=== PATIENT | female | born 1985 | race Hispanic/Latino ===

== ENCOUNTER 2018-07-11 23:05 | Emergency (ER) | payer MEDICAID ==
[2018-07-12 05:41] VITALS: BP 116/72; PULSE 72
== END 2018-07-12 00:40 | disposition home or self-care (01) ==
LOC: H.EROB2 23:05
DX: O34.63 Maternal care for abnormality of vagina, third trimester (principal); N89.8 Other specified noninflammatory disorders of vagina; Z3A.35 35 weeks gestation of pregnancy

== ENCOUNTER 2018-08-15 03:55 | Inpatient (IN) | payer MEDICAID ==
[2018-08-15 05:08] VITALS: BMI 27.3
[2018-08-15] MEDS ORDERED: Lactated Ringer's 1,000 ML IV ONE (05:09)
[2018-08-15] MEDS ORDERED: Oxytocin 30 UNIT 30 UNITS/500 ML BAG IV ONE ×2 (05:11→10:51)
[2018-08-15] MEDS: Lactated Ringer's 1,000 ML IV SCH ×2 (05:15→14:50)
[2018-08-15] MEDS ORDERED: OXYTOCIN/0.9 % NS 20 UNIT/1,000 ML BAG IV SCH (05:15)
[2018-08-15 06:44] LABS: BASO % 0.3 % (0.0-2.0); EOS # 0.1 K/uL (0.0-0.7); EOS % 1.2 % (0.0-4.0); HEMOGLOBIN 10.8 g/dL (12.0-16.0); LYMPH # 1.8 K/uL (1.0-4.3); LYMPH % 17.6 % (20.0-40.0); MEAN CELL VOLUME 72.8 fl (81.0-99.0); MEAN CORPUSCULAR HEMOGLOBIN 23.7 pg (27.0-31.0); MEAN CORPUSCULAR HGB CONC 32.5 g/dL (33.0-37.0); MEAN PLATELET VOLUME 9.5 fl (7.2-11.7); MONO # 0.8 K/uL (0.0-0.8); NEUT # 7.3 K/uL (1.8-7.0); NEUT % 72.9 % (50.0-75.0); RBC 4.55 Mil/uL (3.80-5.20); RED CELL DISTRIBUTION WIDTH 13.8 % (11.5-14.5); WHITE BLOOD COUNT 10.1 K/uL (4.8-10.8)
[2018-08-15] MEDS ORDERED: Lidocaine 1% Inj (20ml) ONE (07:41)
--- NOTE | 2018-08-15 08:03 | OBADHP ---
Datetime: 08/15/2018 05:04 Admit Comment, IP Provider: 33 yo 38wk present to [facility] due to constant contraction started a t 21:00 08/14/18 every six mint. Pt also complain of blood discharge otherwise denies noticing water gush. denies complication during Allergy none PCP: Dr. Bean PMH: none PSH: none OBGYN: 1 nvd 2009, 1 1 miscarriage FH: denies disease Social Denies smoke ETOH, Drug use ( + marijuana use on screen test on wk preg) 5:00 Assessment and plan 33 yo 38wk present to [facility] due to contraction. Will be admitted to L_D for active labor PT is not acute distress FHS reactive U/S Vertix Cervix 6cm LR 1L at 999 LR 1L at 125 Anesthesia at case start labor protocol Discussed with Dr Uriel Stephen PGY1 Addendum by Dr. Trevino: I have evaluated the patient independently and I agree with the above Pelvic Type - PN: Adequate Extremities - PN: Normal Abdomen - PN: Normal Back - PN: Normal Breast - PN: Not Done Lungs - PN: Normal Heart - PN: Normal Thyroid - PN: Normal Neurologic - PN: Normal HEENT - PN: Normal General - PN: Normal Comments, ACOG Physical Exam: PT is not acute distress heart no extra heart sound lung clear abd nontender bs+ cervix 6cm IP Chief Complaint: Uterine contractions Genitourinary Exam: Normal DTRs - PN: Normal EGA AdmitDate IP: 38.0 IP Adm Impression: Term, intrauterine IP Admit Plan: Admit to unit; Initiate labor protocol Datetime: 08/15/2018 04:50 Presentation-Admit: Vertex FHR - Baseline A Provider: 145 Contraction Comments Provider: q 5 mins Gestation - Est Wks by US: 38.0 Vital Signs Provider: Reviewed; Within Normal Limits NICHD Variability Prov Fetus A: Moderate 6-25bpm Dilatation, Provider: 6 Effacement, Provider: 90 Station, Provider: -1 Datetime: 07/12/2018 00:36 NICHD Accel Fetus A IP Provider: [id number] FHR Category Provider Fetus A: Category I NICHD Decel Fetus A IP Provider: None
[2018-08-15 09:32] LABS: BARBITURATES, UR NEGATIVE (NEGATIVE); BENZODIAZEPINES, UR NEGATIVE (NEGATIVE)
[2018-08-15 09:33] LABS: OPIATES, UR NEGATIVE (NEGATIVE); PHENCYCLIDINE, UR NEGATIVE (NEGATIVE)
--- NOTE | 2018-08-15 17:45 | OBPN ---
Datetime: 08/15/2018 11:45 IP Progress Impression: Reassuring heart rate Datetime: 08/15/2018 11:35 IP Procedures: Sterile Vag Exam IP Progress Plan: Induction FHR - Baseline A Provider: 120s-130s IP Progress Note Comment: Discussed with patient that prior exam overestimated her dilation and that she is only 1-2cm. FHT category I. I discussed options with patient including discharge home and e xpectant management or augmentation due to prodromal labor. Pt states that she is too uncomfortable and is requesting augmentation. Plan to admit patient for augmentation. Discussed plan with patient and all patient questions answered. Vital Signs Provider: Reviewed; Within Normal Limits NICHD Accel Fetus A IP Provider: [id number] FHR Category Provider Fetus A: Category I NICHD Variability Prov Fetus A: Moderate 6-25bpm Dilatation, Provider: 1-2 Effacement, Provider: 50 Station, Provider: -3 NICHD Decel Fetus A IP Provider: None Datetime: 08/15/2018 04:50 Contraction Comments Provider: q 5 mins Gestation - Est Wks by US: 38.0 Presentation-Admit: Vertex
--- NOTE | 2018-08-15 17:53 | OBPN ---
Datetime: 08/15/2018 17:51 IP Procedures: Sterile Vag Exam IP Progress Plan: Continue present management; Augmentation Contraction Comments Provider: q3-5min FHR - Baseline A Provider: 120s-130s IP Progress Note Comment: Pt without complaints FHT category I Continue current management. Discussed plan with patient and all patient questions answered. Vital Signs Provider: Reviewed; Within Normal Limits NICHD Accel Fetus A IP Provider: [id number] FHR Category Provider Fetus A: Category I NICHD Variability Prov Fetus A: Moderate 6-25bpm Dilatation, Provider: 2 Effacement, Provider: 90 Station, Provider: -2 NICHD Decel Fetus A IP Provider: None
[2018-08-15] MEDS ORDERED: Fentanyl/Bupivacaine HCl 250 ML EPI ONE (19:15)
[2018-08-15] MEDS ORDERED: ePHEDrine 50 mg/ml Inj ONE (20:01)
--- NOTE | 2018-08-15 22:58 | OBPN ---
Datetime: 08/15/2018 21:56 IP Progress Impression: Normal progression of labor IP Procedures: Sterile Vag Exam IP Progress Plan: Continue present management Contraction Comments Provider: q4-5min FHR - Baseline A Provider: 140s-150s IP Progress Note Comment: Pt without complaints FHT category I Labor progressing well Continue current managment. Vital Signs Provider: Reviewed; Within Normal Limits NICHD Accel Fetus A IP Provider: [id number] FHR Category Provider Fetus A: Category I NICHD Variability Prov Fetus A: Moderate 6-25bpm Dilatation, Provider: 7-8 Effacement, Provider: 100 Station, Provider: 0 NICHD Decel Fetus A IP Provider: None
--- NOTE | 2018-08-15 23:50 | OBDS ---
MATERNAL INFORMATION Provider Comments: . Pt delivered viable infant male with Apgars 1/9 at 1 _ 5 minutes. MARIE position. Placenta deliver ed spont. Lac repaired, as above. Uterus firm and approp hemostatic following delivery. Pt tolerat ed delivery and repair well. No complications. EBL 300cc. LABOR SUMMARY EDC: 08/29/2018 00:00 LABOR INFORMATION Group B Beta Strep: Negative MEMBRANES Membranes Rupture Method: Spontaneous Rupture of Membranes: 08/15/2018 18:30 Amniotic Fluid Amount: Moderate Amniotic Fluid Odor: Normal VAGINAL DELIVERY Episiotomy: None Laceration Extension: Second Degree Laceration Type: Perineal Laceration Repair Note: Second degree midline perineal laceration. Area infiltrated with 1% lidocai ne. Lac repaired with 2.0 rapide without complication. Pt tolerated well.
[2018-08-15] MEDS ORDERED: Oxycodone/Acetaminophen 5/325 mg Tab PO PRN ×2 (23:55)
[2018-08-15] MEDS ORDERED: Benzocaine/Menthol SPRAY TOP PRN (23:55)
--- NOTE | 2018-08-16 00:52 | OBDS ---
DELIVERY PERSONNEL Delivery Doctor: Arvin Rucker MD Central Office Equipment Engineer: Emily Steinberg RN Anesthesiologist: Carlos Manuel Amaral MD MATERNAL INFORMATION Delivery Anesthesia: Local; Epidural Medications in Delivery: Pitocin Estimated Blood Loss (ml): 300 Placenta Cultured: No Maternal Complications: None Provider Comments: . Pt delivered viable male with Apgars 9/9 at 1 _ 5 minutes. MARIE position. Placenta deliver ed spont. Lac repaired, as above. Uterus firm and approp hemostatic following delivery. Pt tolerat ed delivery and repair well. No complications. EBL 300cc. Addendum: Apgars were 9/9 LABOR SUMMARY EDC: 08/29/2018 00:00 EDC: 08/14/2018 00:00 No. Babies in Womb: 1 Attempted: No Labor Anesthesia: Epidural LABOR INFORMATION Reason for Induction: Not Applicable Onset of Labor: 08/15/2018 21:45 Complete Dilatation: 08/15/2018 22:55 Oxytocin: Augmentation Group B Beta Strep: Negative Antibiotics # of Doses: 0 Antibiotics Time of Last Dose: N/A MEMBRANES Membranes Rupture Method: Spontaneous Membranes Rupture Method: Spontaneous Membranes Rupture Method: Spontaneous Membranes Rupture Method: Spontaneous Membranes Rupture Method: Spontaneous Rupture of Membranes: 08/15/2018 18:30 Rupture of Membranes: 08/15/2018 18:30 Rupture of Membranes: 08/15/2018 18:30 Length of Rupture (hrs): 4.67 Length of Rupture (hrs): 4.67 Length of Rupture (hrs): 4.67 Amniotic Fluid Color: Clear Amniotic Fluid Amount: Moderate Amniotic Fluid Amount: Moderate Amniotic Fluid Amount: Moderate Amniotic Fluid Odor: Normal Amniotic Fluid Odor: Normal Amniotic Fluid Odor: Normal STAGES OF LABOR Stage 1 hrs: 1 Stage 1 min: 10 Stage 2 hrs: 0 Stage 2 min: 15 Stage 3 hrs: 0 Stage 3 min: 8 Total Time in Labor hrs: 1 Total Time in Labor min: 33 VAGINAL DELIVERY Episiotomy: None Laceration Extension: Second Degree Laceration Type: Perineal Laceration Repair: Yes Laceration Repair Note: Second degree midline perineal laceration. Area infiltrated with 1% lidocai ne. Lac repaired with 2.0 rapide without complication. Pt tolerated well. Initial Vag Sponge Count: 5 Laps _ 10 4x4's Final Vag Sponge Count: 5 Laps _ 20 4x4's Initial Vag Sharps Count: 3 Final Vag Sharps Count: 3 Sponge Count Correct: Yes Sharps Count Correct: Yes Count Comment: All counts correct and acknowledged by Dr. Rucker BABY A INFORMATION Infant Delivery Date/Time: 08/15/2018 23:10 Method of Delivery: Vaginal Born in Route : No : N/A Forceps: N/A Vacuum Extraction: N/A Shoulder Dystocia : No SHOULDER DYSTOCIA BABY A Delivery Date/Time: 08/15/2018 23:10 PRESENTATION/POSITION BABY A Presentation: Cephalic Cephalic Presentation: Vertex Vertex Position: Left Occipital Anterior Breech Presentation: N/A PLACENTA INFORMATION BABY A Placenta Delivery Time : 08/15/2018 23:18 Placenta Method of Delivery: Spontaneous Placenta Status: Delivered SCORES BABY A Heart Rate 1 min: >100 bpm Resp Effort 1 min: Good Cry Reflex Irritability 1 min: Cough or Sneeze or Pulls Away Muscle Tone 1 min: Active Motion Color 1 min: Body Candor, Extremities Blue Resuscitation Effort 1 min: Tactile Stimulation SCORE 1 MIN: 9 Heart Rate 5 min: >100 bpm Resp Effort 5 min: Good Cry Reflex Irritability 5 min: Cough or Sneeze or Pulls Away Muscle Tone 5 min: Active Motion Color 5 min: Body Candor, Extremities Blue Resuscitation Effort 5 min: N/A SCORE 5 MIN: 9 INFANT INFORMATION BABY A Gestational Age at Delivery: 38.0 Gestational Status: Term Outcome : Liveborn Infant Condition : Stable Sex: Male IDENTIFICATION/MEDS BABY A ID Band Number: [id number] ID Band Location: Left Leg; Left Arm WEIGHT/LENGTH BABY A Infant Birthweight (gms): 3020 Infant Weight (lb): 6 Weight (oz): 10 CORD INFORMATION BABY A No. Cord Vessels: 3 Nuchal Cord : N/A Nuchal Cord Other: 0 True Knot: 0 Infant Cord pH Baby Arterial: N/A Infant Cord pH Baby Venous: N/A Cord Blood Taken: Yes Banking/Donate Info: N/A Infant Suction: Mouth; Nose ASSESSMENT BABY A Infant Complications: None Physical Findings at Delivery: Within Normal Limits Respirations: Appears Normal Game [employer]eding [employer] Manager/ALS Called : No Care By: Rebeka Steinberg RN Transferred To: Remains with Mother
[2018-08-16] MEDS ORDERED: Oxycodone/Acetaminophen 5/325 mg Tab PO PRN ×2 (02:58)
[2018-08-16] MEDS ORDERED: Benzocaine/Menthol SPRAY TOP PRN (02:58)
[2018-08-16 06:18] LABS: BASO % 0.2 % (0.0-2.0); EOS % 0.3 % (0.0-4.0); HEMOGLOBIN 9.2 g/dL (12.0-16.0); LYMPH # 1.2 K/uL (1.0-4.3); LYMPH % 10.2 % (20.0-40.0); MEAN CELL VOLUME 73.4 fl (81.0-99.0); MEAN CORPUSCULAR HGB CONC 32.6 g/dL (33.0-37.0); MEAN PLATELET VOLUME 9.3 fl (7.2-11.7); MONO # 0.7 K/uL (0.0-0.8); MONO % 6.1 % (0.0-10.0); NEUT # 9.6 K/uL (1.8-7.0); NEUT % 83.2 % (50.0-75.0); NRBC % 0.1 % (0.0-0.0); RBC 3.83 Mil/uL (3.80-5.20); RED CELL DISTRIBUTION WIDTH 14.1 % (11.5-14.5); WHITE BLOOD COUNT 11.6 K/uL (4.8-10.8)
--- NOTE | 2018-08-16 07:55 | OBPPN ---
Datetime: 08/16/2018 06:17 PP Pain Prov: Within normal limits PP Nausea Prov: Denies PP Flatus Prov: Yes PP Breasts Prov: Not Done PP Heart Prov: Normal PP Lungs Prov: Normal PP Abdomen/Uterus Prov: Normal PP Lochia Prov: Normal PP Vulva/Perineum Prov: Normal PP CVA Tenderness Prov: Normal PP Extremities Prov: Normal PP Progress Prov: Normal PP Comments Phys Exam Prov: see note PP Impression Prov: Normal progression PP Plan Prov: Continue present management PP Progress Note Prov: 33 yo s/p nvd seen and examined at bedside PPD1. Pt complain of mild abd pain that relieved with Ibuprofen, She have not yet ambulated, bleeding equal to menses. PT is ab le to pass flatus and void, but no bm. She have good appetite. Pt denies any N/V. Pt want Circumcisio ns O: VS WNL GEN: NAD HEENT: NCAT RESP: CTA b/l CV: RRR, S1 S2 ABD: Soft, uterus firm at umbilicus level EXT: No edema, Octaviano's neg A/P 37 YO S/p NVD, today on her PPD2 with normal progression. Plan Will do Circumcisions Encourage breast feeding Ibuprofen for pain Continue current management Will discharge on 08/17 Gautam Stephen PGY1 OB Hospitalist Addendum: Pt seen and examined by me. Agree w/ above. PPD 1 s/p VD, doing well, br east feeding. Continue current care. (ES) Vital Signs Provider PP: Reviewed; Within Normal Limits
[2018-08-16] MEDS ORDERED: IRON PO SCH (09:00)
[2018-08-16] MEDS ORDERED: [UNRECOGNIZED DRUG - OTHER] PO SCH (09:00)
[2018-08-16] MEDS ORDERED: PRENATAL VIT PO SCH (09:00)
[2018-08-16] MEDS ORDERED: FOLIC PO SCH (09:00)
[2018-08-16] MEDS ORDERED: Prenatal Multivit/Folic Acid/Iron Tab PO SCH ×2 (09:00)
[2018-08-16] MEDS ORDERED: Lansinoh for Breast Feeding Mothers TP PRN (15:52)
[2018-08-17 19:13] VITALS: BP 99/55; PULSE 60; RESP 20; TEMP 97.1; O2SAT 98
== END 2018-08-17 14:00 | disposition home or self-care (01) | DRG 373 ==
LOC: H.EROB2 03:55 → H.L&D 05:09 → H.OB/GYN 08-16 02:45
PROVIDERS: ADMIT Obstetrics & Gynecology; ATTEND Obstetrics & Gynecology
PROC: 0KQM0ZZ Repair Perineum Muscle, Open Approach (ICD-10-PCS; principal; 2018-08-15)
PROC: 10E0XZZ Delivery of Products of Conception, External Approach (ICD-10-PCS; 2018-08-15)
PROC: 4A1HXCZ Monitoring of Products of Conception, Cardiac Rate, External Approach (ICD-10-PCS; 2018-08-15)
DX: O70.1 Second degree perineal laceration during delivery (principal); Z3A.38 38 weeks gestation of pregnancy; Z37.0 Single live birth